=== PATIENT | female | born 1985 ===

== ENCOUNTER 2017-06-09 01:27 | Emergency (ER) | payer MEDICAID ==
[2017-06-09 01:52] VITALS: BMI 25.3
[2017-06-09 01:55] VITALS: BP 112/71; PULSE 103; RESP 16; TEMP 98; O2SAT 98
[2017-06-09] MEDS ORDERED: Sodium Chloride 0.9% 1,000 ML IV STA (01:55)
[2017-06-09 02:41] LABS: BASO # 0.1 K/uL (0.0-0.2); BASO % 0.7 % (0.0-2.0); EOS # 0.1 K/uL (0.0-0.7); EOS % 0.9 % (0.0-4.0); LYMPH # 1.1 K/uL (1.0-4.3); LYMPH % 14.3 % (20.0-40.0); MEAN CELL VOLUME 90.9 fl (81.0-99.0); MEAN CORPUSCULAR HEMOGLOBIN 29.9 pg (27.0-31.0); MEAN CORPUSCULAR HGB CONC 32.9 g/dL (33.0-37.0); MEAN PLATELET VOLUME 8.6 fl (7.2-11.7); MONO # 0.7 K/uL (0.0-0.8); MONO % 8.6 % (0.0-10.0); NEUT # 5.8 K/uL (1.8-7.0); NEUT % 75.5 % (50.0-75.0); RED CELL DISTRIBUTION WIDTH 12.4 % (11.5-14.5); WHITE BLOOD COUNT 7.7 K/uL (4.8-10.8)
[2017-06-09 02:43] LABS: RBC URINE 2 /hpf (0-3); URINE BILIRUBIN NEGATIVE (NEGATIVE); URINE BLOOD NEGATIVE (NEGATIVE); URINE COLOR YELLOW (YELLOW); URINE GLUCOSE (UA) NEG (Normal); URINE KETONE TRACE mg/dL (NEGATIVE); URINE LEUKOCYTE ESTERASE TRACE Leu/uL (Negative); URINE PROTEIN 30 mg/dL (NEGATIVE); URINE UROBILINOGEN 0.2-1.0 mg/dL (0.2-1.0); WBC URINE 2 /hpf (0-5)
[2017-06-09 02:47] LABS: ALB/GLOB RATIO 1.3 (1.0-2.1); ALKALINE PHOSPHATASE 70 U/L (38-126); ALT/SGPT 36 U/L (9-52); AST/SGOT 27 U/L (14-36); BILIRUBIN,TOTAL 0.4 mg/dl (0.2-1.3); BLOOD UREA NITROGEN 15 mg/dl (7-17); CALCIUM 9.2 mg/dL (8.4-10.2); CARBON DIOXIDE 23 mmol/L (22-30); CHLORIDE 102 mmol/L (98-107); GFR AFRICAN-AMERICAN > 60; GLUCOSE,RANDOM 105 mg/dL (65-105); LIPASE 100 U/L (23-300); POTASSIUM 4.1 MMOL/L (3.6-5.0); SODIUM 139 mmol/l (132-148); TOTAL PROTEIN 8.1 G/DL (6.3-8.2)
--- NOTE | 2017-06-09 02:56 | ED PDOC ---
HPI: Abdomen Time Seen by Provider: 06/09/17 01:55 Chief Complaint (Nursing): Abdominal Pain Chief Complaint (Provider): abominal pain History Per: Patient History/Exam Limitations: no limitations Onset/Duration Of Symptoms: Days (2) Outside of [place] travel?: No Location Of Pain/Discomfort: Epigastric Quality Of Discomfort: Sharp Associated Symptoms: Nausea, Diarrhea (>3x ), Loss Of Appetite. denies: Fever, Chills, Vomiting, Back Pain, Chest Pain, Constipation, Urinary Symptoms Past Medical History Reviewed: Historical Data, Nursing Documentation, Vital Signs Vital Signs: Last Vital Signs Temp 98.0 F 06/09/17 01:35 Pulse 103 H 06/09/17 01:35 Resp 16 06/09/17 01:35 BP 112/71 06/09/17 01:35 Pulse Ox 98 06/09/17 02:57 - Medical History PMH: Denies: HIV, Chronic Kidney Disease - Family History Family History: States: Unknown Family Hx - Home Medications Home Medications: Ambulatory Orders Medication Instructions Recorded Meclizine [Meclizine*] 25 mg PO Q6 #30 tab 12/23/15 Naproxen [Naprosyn] 500 mg PO Q12H #20 tab 09/02/16 Ondansetron [Zofran] 4 mg PO Q8H #10 tab 09/02/16 traMADol [Ultram] 50 mg PO Q8 #10 tab 09/02/16 Famotidine [Pepcid] 20 mg PO BID #16 tab 06/09/17 - Allergies Allergies/Adverse Reactions: Allergies Allergy/AdvReac Type Severity Reaction Status Date / Time No Known Allergies Allergy Verified 06/09/17 01:51 Review of Systems ROS Statement: Except As Marked, All Systems Reviewed And Found Negative Constitutional: Negative for: Fever Gastrointestinal: Positive for: Nausea. Negative for: Vomiting, Abdominal Pain Physical Exam - Reviewed Nursing Documentation Reviewed: Yes Vital Signs Reviewed: Yes - Physical Exam Appears: Positive for: Well, Non-toxic, No Acute Distress Skin: Positive for: Normal Color, Warm, DRY Cardiovascular/Chest: Positive for: Regular Rate, Rhythm Respiratory: Positive for: CNT, Normal Breath Sounds Gastrointestinal/Abdominal: Positive for: Normal Exam, Bowel Sounds, Soft, Tenderness (epigastric). Negative for: Mass, Distended, Guarding Back: Positive for: Normal Inspection. Negative for: L CVA Tenderness, R CVA Tenderness Neurologic/Psych: Positive for: Alert, Oriented - Laboratory Results Result Diagrams: 06/09/17 02:32 06/09/17 02:32 - ECG O2 Sat by Pulse Oximetry: 98 - Progress ED Course And Treament: Orders Category Date Time Status COMP METABOLIC PANEL Stat Chem 06/09/17 02:32 Completed LIPASE Stat Chem 06/09/17 02:32 Completed CBC (WITH DIFFERENTIAL) Stat TOSIN 06/09/17 02:32 Completed Famotidine [Pepcid] Med 06/09/17 02:11 Discontinued 20 mg .ROUTE .STK-MED ONE Famotidine [Pepcid] Med 06/09/17 01:55 Discontinued 20 mg IVP STAT STA Ondansetron [Zofran Inj] Med 06/09/17 02:11 Discontinued 4 mg .ROUTE .STK-MED ONE Ondansetron [Zofran Inj] Med 06/09/17 01:55 Discontinued 4 mg IVP STAT STA Sodium Chloride 0.9% 1,000 ml Med 06/09/17 01:55 Discontinued IV 1,000 mls/hr URINALYSIS Stat URINALYSIS 06/09/17 02:32 Completed Medical Decision Making Medical Decision Making: PT improved in symptom severity. labs are WNL. pt most likely with gastroenteritis, however advised to f.u with pmd for furthereval . d.c on pepcid. 06/09/17 06/09/17 06/09/17 02:32 02:32 02:32 WBC 7.7 RBC 4.96 Hgb 14.8 D Hct 45.0 MCV 90.9 MCH 29.9 MCHC 32.9 L RDW 12.4 Plt Count 253 MPV 8.6 Neut % (Auto) 75.5 H Lymph % (Auto) 14.3 L [place] % (Auto) 8.6 Eos % (Auto) 0.9 Baso % (Auto) 0.7 Neut # 5.8 Lymph # 1.1 [place] # 0.7 Eos # 0.1 Baso # 0.1 Sodium 139 Potassium 4.1 Chloride 102 Carbon Dioxide 23 Anion Gap 18 BUN 15 Creatinine 0.6 L Est GFR ( Amer) > 60 Est GFR (Non-Af Amer) > 60 Random Glucose 105 Calcium 9.2 Total Bilirubin 0.4 AST 27 ALT 36 Alkaline Phosphatase 70 Total Protein 8.1 Albumin 4.5 Globulin 3.6 Albumin/Globulin Ratio 1.3 Lipase 100 Urine Color Yellow Urine Clarity Slighty-cloudy Urine pH 6.0 Ur Specific [place] 1.030 Urine Protein 30 Urine Glucose (UA) Neg Urine Ketones Trace Urine Blood Negative Urine Nitrate Negative Urine Bilirubin Negative Urine Urobilinogen 0.2-1.0 Ur Leukocyte Esterase Trace Urine RBC (Auto) 2 Urine Microscopic WBC 2 Ur Squamous Epith Cells 6 H Disposition - Clinical Impression Clinical Impression: Gastroenteritis, Abdominal tenderness - Patient ED Disposition Is Patient to be Admitted: No Counseled Patient/Family Regarding: Need For Followup, Rx Given - Disposition Referrals: Homar Thomas MD [Staff Provider] - Disposition: Routine/Home Disposition Time: 03:52 Condition: STABLE Prescriptions: Famotidine [Pepcid] 20 mg PO BID #16 tab Forms: [employer] (Zimbabwean)
== END 2017-06-09 05:00 | disposition home or self-care (01) ==
LOC: H.ER 01:27
DX: K52.9 Noninfective gastroenteritis and colitis, unspecified (principal)
CPT/HCPCS: 80053; 81003; 81025; 83690; 85025; 96361; 96374; 96375; 99283; J2405; J7040

== ENCOUNTER 2017-07-25 06:13 | Emergency (ER) | payer MEDICAID ==
[2017-07-25 06:14] VITALS: BMI 25.3
[2017-07-25 06:52] VITALS: BP 103/77; PULSE 120; RESP 16; TEMP 97.5; O2SAT 98
--- NOTE | 2017-07-25 07:54 | ED PDOC ---
HPI: General Adult Time Seen by Provider: 07/25/17 06:26 Chief Complaint (Nursing): Cough, Cold, Congestion Chief Complaint (Provider): Cough, Cold, Congestion History Per: Patient History/Exam Limitations: no limitations Onset/Duration Of Symptoms: Days (x3 days) Current Symptoms Are (Timing): Still Present Additional Complaint(s): 31 y/o female presents to the ED for fever, cough and cold x 3 days. 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 Patient started getting dry cough and seeing and body aches on Wednesday and on Wednesday she started getting chest pain, fever (102), cough, headache and lower back pain. Patient states that she took Tylenol (last dose at 7pm on Wednesday07/25/16) and promethazine with no relief. Patient also used biofreeze for back pain without relief. Denies vomiting, nausea or any further medical complaints. Past Medical History Reviewed: Historical Data, Nursing Documentation, Vital Signs Vital Signs: Last Vital Signs Temp 97.5 F L 07/25/17 06:50 Pulse 120 H 07/25/17 06:50 Resp 16 07/25/17 06:50 BP 103/77 07/25/17 06:50 Pulse Ox 98 07/25/17 08:14 - Medical History PMH: Denies: HIV, Chronic Kidney Disease Other PMH: Bilateral Ovarian Cyst - Surgical History Surgical History: No Surg Hx - Family History Family History: States: Unknown Family Hx - Social History Current smoker - smoking cessation education provided: No Alcohol: None Drugs: Denies - Home Medications Home Medications: Ambulatory Orders Medication Instructions Recorded Meclizine [Meclizine*] 25 mg PO Q6 #30 tab 12/23/15 Naproxen [Naprosyn] 500 mg PO Q12H #20 tab 09/02/16 Ondansetron [Zofran] 4 mg PO Q8H #10 tab 09/02/16 traMADol [Ultram] 50 mg PO Q8 #10 tab 09/02/16 Famotidine [Pepcid] 20 mg PO BID #16 tab 06/09/17 Ondansetron [Zofran] 4 mg PO Q8H #12 tab 06/09/17 Benzonatate [Tessalon Perle] 100 mg PO TID #30 capsule 07/25/17 Naproxen [Naprosyn] 500 mg PO BID PRN #20 tablet 07/25/17 - Allergies Allergies/Adverse Reactions: Allergies Allergy/AdvReac Type Severity Reaction Status Date / Time No Known Allergies Allergy Verified 06/09/17 01:51 Review of Systems ROS Statement: Except As Marked, All Systems Reviewed And Found Negative (As per HPI, otherwise negative) Constitutional: Positive for: Fever, Weakness (Body aches), Other (cold) Cardiovascular: Positive for: Chest Pain Respiratory: Positive for: Cough Gastrointestinal: Negative for: Nausea, Vomiting Musculoskeletal: Positive for: Back Pain (Lower back pain) Neurological: Positive for: Headache Physical Exam - Reviewed Nursing Documentation Reviewed: Yes Vital Signs Reviewed: Yes - Physical Exam Appears: Positive for: Well, Non-toxic, No Acute Distress Head Exam: Positive for: ATRAUMATIC, NORMAL INSPECTION, NORMOCEPHALIC Skin: Positive for: Normal Color, Warm, Dry Eye Exam: Positive for: Normal appearance, EOMI, PERRL ENT: Positive for: Pharyngeal Erythema. Negative for: Tonsillar Exudate Neck: Positive for: Normal, Painless ROM, Supple Cardiovascular/Chest: Positive for: Regular Rate, Rhythm. Negative for: Murmur Respiratory: Positive for: Normal Breath Sounds. Negative for: Accessory Muscle Use, Respiratory Distress Gastrointestinal/Abdominal: Positive for: Normal Exam, Bowel Sounds, Soft. Negative for: Tenderness Back: Positive for: Normal Inspection Extremity: Positive for: Normal ROM. Negative for: Deformity Neurologic/Psych: Positive for: Alert, Oriented (x3) - ECG O2 Sat by Pulse Oximetry: 98 (RA) Pulse Ox Interpretation: Normal Medical Decision Making Medical Decision Making: Time: 07:11 Plan: Urine Dipstick Test Throat culture Rapid flu A/B Rapid strep group Urinalysis Scribe Attestation: Documented by Nallely Shaw acting as a scribe for Nohemi Ward MD. MD Fernando Attestation: All medical record entries made by the Kassie were at my direction and personally dictated by me. I have reviewed the chart and agree that the record accurately reflects my personal performance of the history, physical exam, medical decision making, and the department course for this patient. I have also personally directed, reviewed, and agree with the discharge instructions and disposition. Disposition - Clinical Impression Clinical Impression: URI, acute - Patient ED Disposition Is Patient to be Admitted: No Doctor Will See Patient In The: Office Counseled Patient/Family Regarding: Diagnosis, Need For Followup, Rx Given - Disposition Disposition: Routine/Home Disposition Time: 09:20 Condition: STABLE Additional Instructions: Flu and rapid strep negative Prescriptions: Benzonatate [Tessalon Perle] 100 mg PO TID #30 capsule Naproxen [Naprosyn] 500 mg PO BID PRN #20 tablet PRN Reason: Pain, Moderate (4-7) Instructions: Upper Respiratory Infection (ED) Forms: [facility] (Nigerien) - POA Present On Arrival: None
[2017-07-25 09:37] LABS: SQUAMOUS EPITHIAL 17 /hpf (0-5); URINE BACTERIA RARE (<OCC); URINE BILIRUBIN NEGATIVE (NEGATIVE); URINE BLOOD SMALL (NEGATIVE); URINE CLARITY CLOUDY (Clear); URINE COLOR YELLOW (YELLOW); URINE GLUCOSE (UA) NEG (Normal); URINE LEUKOCYTE ESTERASE TRACE Leu/uL (Negative); URINE NITRATE NEGATIVE (NEGATIVE); URINE PROTEIN NEGATIVE (NEGATIVE); URINE UROBILINOGEN 0.2-1.0 mg/dL (0.2-1.0)
== END 2017-07-25 09:57 | disposition home or self-care (01) ==
LOC: H.ER 06:13
DX: J06.9 Acute upper respiratory infection, unspecified (principal)

== ENCOUNTER 2017-10-06 09:30 | Emergency (ER) | payer MEDICAID ==
[2017-10-06 09:31] VITALS: BMI 25.3
[2017-10-06] MEDS ORDERED: Sodium Chloride 0.9% 1,000 ML IV STA (09:56)
--- NOTE | 2017-10-06 10:02 | ED PDOC ---
HPI: Abdomen Time Seen by Provider: 10/06/17 09:38 Chief Complaint (Nursing): Abdominal Pain History Per: Patient (32 yo lady who presents to the ER for evaluation of sudden and acute onset of severe left side abd/flank pain that caused her to fall to the ground. At the peak of the pain while she was en-route, she vomited. The pain is tolerable now but still present. It is sharp and non radiating.) History/Exam Limitations: no limitations Onset/Duration Of Symptoms: Sudden Onset Past Medical History Reviewed: Historical Data, Nursing Documentation, Vital Signs Vital Signs: Last Vital Signs Temp 97 F L 10/06/17 14:09 Pulse 79 10/06/17 14:09 Resp 19 10/06/17 14:09 BP 110/70 10/06/17 14:09 Pulse Ox 98 10/06/17 14:09 - Medical History PMH: Denies: HIV, Chronic Kidney Disease Other PMH: ovarian cyst - Surgical History Surgical History: No Surg Hx - Family History Family History: States: No Known Family Hx - Living Arrangements Living Arrangements: With Family - Social History Current smoker - smoking cessation education provided: No Alcohol: None - Home Medications Home Medications: Ambulatory Orders Medication Instructions Recorded Meclizine [Meclizine*] 25 mg PO Q6 #30 tab 12/23/15 Naproxen [Naprosyn] 500 mg PO Q12H #20 tab 09/02/16 Ondansetron [Zofran] 4 mg PO Q8H #10 tab 09/02/16 traMADol [Ultram] 50 mg PO Q8 #10 tab 09/02/16 Famotidine [Pepcid] 20 mg PO BID #16 tab 06/09/17 Ondansetron [Zofran] 4 mg PO Q8H #12 tab 06/09/17 Benzonatate [Tessalon Perle] 100 mg PO TID #30 capsule 07/25/17 Naproxen [Naprosyn] 500 mg PO BID PRN #20 tablet 07/25/17 Ciprofloxacin HCl [Cipro] 250 mg PO BID #14 tab 10/06/17 Naproxen [Naprosyn] 500 mg PO BID PRN #20 tablet 10/06/17 Ondansetron [Zofran] 4 mg PO Q8H #18 tab 03/28/18 Tamsulosin [Flomax] 0.4 mg PO DAILY #21 cap 10/06/17 - Allergies Allergies/Adverse Reactions: Allergies Allergy/AdvReac Type Severity Reaction Status Date / Time No Known Allergies Allergy Verified 06/09/17 01:51 Review of Systems ROS Statement: Except As Marked, All Systems Reviewed And Found Negative Constitutional: Negative for: Fever, Chills Cardiovascular: Negative for: Chest Pain Respiratory: Negative for: Cough, Shortness of Breath Gastrointestinal: Positive for: Nausea, Vomiting, Abdominal Pain (left) Genitourinary Female: Positive for: Vaginal Bleeding (menstrual). Negative for : Dysuria Physical Exam - Reviewed Nursing Documentation Reviewed: Yes Vital Signs Reviewed: Yes - Physical Exam Appears: Positive for: Well, Non-toxic, No Acute Distress, Uncomfortable Head Exam: Positive for: ATRAUMATIC, NORMAL INSPECTION, NORMOCEPHALIC Skin: Positive for: Normal Color, Warm, DRY Eye Exam: Positive for: Normal appearance, EOMI ENT: Positive for: Normal ENT Inspection Neck: Positive for: Normal Cardiovascular/Chest: Positive for: Regular Rate, Rhythm Respiratory: Positive for: CNT, Normal Breath Sounds Gastrointestinal/Abdominal: Positive for: Normal Exam, Soft. Negative for: Tenderness, Distended, Guarding Back: Positive for: Normal Inspection. Negative for: L CVA Tenderness, R CVA Tenderness Extremity: Positive for: Normal ROM Neurologic/Psych: Positive for: Alert, Oriented - Laboratory Results Result Diagrams: 10/06/17 10:40 10/06/17 10:40 - ECG O2 Sat by Pulse Oximetry: 100 Medical Decision Making Medical Decision Making: flank pain: stone vs. UTI LLQ pain: ovarian cyst vs. intestinal process. \ 2.00p - patient improved. pain controlled. CT shows 6mm stone with mild hydroneprhosis. Case d/w Jovi Zimmerman. Will see in the morning Disposition - Clinical Impression Clinical Impression: Ureteral stone with hydronephrosis - Patient ED Disposition Is Patient to be Admitted: No Doctor Will See Patient In The: Office Counseled Patient/Family Regarding: Diagnosis, Need For Followup, Rx Given - Disposition Referrals: Jamel Smallwood MD [Family Provider] - 10/07/17 9:00 am Disposition: Routine/Home Disposition Time: 14:16 Condition: IMPROVED Prescriptions: Ciprofloxacin HCl [Cipro] 250 mg PO BID #14 tab Naproxen [Naprosyn] 500 mg PO BID PRN #20 tablet PRN Reason: Pain, Moderate (4-7) Ondansetron [Zofran] 4 mg PO Q8H #18 tab Tamsulosin [Flomax] 0.4 mg PO DAILY #21 cap Instructions: Kidney Stones in Adults Forms: [facility] (Lithuanian), [facility] ED School/Work Excuse - POA Present On Arrival: None
[2017-10-06 10:56] LABS: BASO # 0.1 K/uL (0.0-0.2); BASO % 0.8 % (0.0-2.0); EOS % 0.4 % (0.0-4.0); HEMOGLOBIN 14.2 g/dL (12.0-16.0); LYMPH # 1.9 K/uL (1.0-4.3); LYMPH % 17.1 % (20.0-40.0); MEAN CELL VOLUME 90.6 fl (81.0-99.0); MEAN CORPUSCULAR HEMOGLOBIN 30.3 pg (27.0-31.0); MEAN CORPUSCULAR HGB CONC 33.5 g/dL (33.0-37.0); MEAN PLATELET VOLUME 8.7 fl (7.2-11.7); MONO # 0.7 K/uL (0.0-0.8); NEUT # 8.3 K/uL (1.8-7.0); NEUT % 75.7 % (50.0-75.0); RBC 4.69 Mil/uL (3.80-5.20)
[2017-10-06 11:01] LABS: SQUAMOUS EPITHIAL 7 /hpf (0-5); URINE BILIRUBIN NEGATIVE (NEGATIVE); URINE BLOOD LARGE (NEGATIVE); URINE CLARITY CLOUDY (Clear); URINE COLOR YELLOW (YELLOW); URINE GLUCOSE (UA) NEG (Normal); URINE LEUKOCYTE ESTERASE NEG Leu/uL (Negative); URINE PROTEIN 100 mg/dL (NEGATIVE); URINE UROBILINOGEN 0.2-1.0 mg/dL (0.2-1.0)
[2017-10-06 11:16] LABS: ALB/GLOB RATIO 1.1 (1.0-2.1); ALBUMIN 4.4 g/dL (3.5-5.0); ALT/SGPT 40 U/L (9-52); AST/SGOT 27 U/L (14-36); BLOOD UREA NITROGEN 17 mg/dl (7-17); GFR AFRICAN-AMERICAN > 60; GFR NON-AFRICAN AMERICAN > 60
--- NOTE | 2017-10-06 12:06 | CT ---
PROCEDURE: CT Abdomen and Pelvis without intravenous contrast HISTORY: acute left flank pain COMPARISON: 09/02/2016 TECHNIQUE: Without contrast.. Contrast Dose: 0 Radiation dose: Total exam DLP = Total exam DLP = 400.75 mGy-cm. This CT exam was performed using one or more of the following dose reduction techniques: Automated exposure control, adjustment of the mA and/or kV according to patient size, and/or use of iterative reconstruction technique. FINDINGS: LOWER THORAX: Unremarkable. LIVER: Normal size and contour. Diffusely diminished attenuation consistent with fatty infiltration. Mild focal fatty sparing about the gallbladder fossa. No mass. No biliary ductal dilatation. GALLBLADDER AND BILE DUCTS: Unremarkable. PANCREAS: Unremarkable. No gross lesion or ductal dilatation. SPLEEN: Unremarkable. ADRENALS: Unremarkable. No mass. KIDNEYS AND URETERS: Minimal left hydronephrosis and proximal hydroureter. There is a proximal left ureteral calculus measuring 6 mm in greatest dimension. The ureter is of normal caliber distal to this stone. VASCULATURE: Unremarkable. No aortic aneurysm. BOWEL: Unremarkable. No obstruction. No gross mural thickening. APPENDIX: Unremarkable. Normal appendix. PERITONEUM: Trace fluid in cul-de-sac. LYMPH NODES: Unremarkable. No enlarged lymph nodes. BLADDER: Nondistended REPRODUCTIVE: Normal anteverted uterus BONES: No acute fracture. OTHER FINDINGS: None. IMPRESSION: Obstructing 6 mm calculus in the proximal left ureter with minimal left hydroureteronephrosis. Mild fatty infiltration of the liver. No additional abnormality.
[2017-10-06 14:10] VITALS: RESP 19
[2017-10-06] MEDS ORDERED: Naproxen 500 MG TAB PO ONE ×2 (14:14→14:40)
[2017-10-07 11:05] VITALS: BP 128/76; PULSE 78; TEMP 97.6; O2SAT 98
== END 2017-10-06 15:10 | disposition home or self-care (01) ==
LOC: H.ER 09:30
DX: N13.2 Hydronephrosis with renal and ureteral calculous obstruction (principal); K76.0 Fatty (change of) liver, not elsewhere classified; N83.209 Unspecified ovarian cyst, unspecified side
CPT/HCPCS: 74176; 80053; 81003; 81025; 85025; 96374; 96375; 99284; J1885; J2765; J7040

== ENCOUNTER 2017-10-08 00:04 | Emergency (ER) | payer MEDICAID ==
[2017-10-08 00:04] VITALS: BMI 25.3
[2017-10-08 00:13] VITALS: BP 111/74; PULSE 78; RESP 16; TEMP 98.5; O2SAT 100
[2017-10-08] MEDS ORDERED: Sodium Chloride 0.9% 1,000 ML IV STA (00:51)
[2017-10-08 01:17] LABS: BASO # 0.1 K/uL (0.0-0.2); BASO % 0.6 % (0.0-2.0); EOS % 0.1 % (0.0-4.0); LYMPH # 1.3 K/uL (1.0-4.3); LYMPH % 10.4 % (20.0-40.0); MEAN CELL VOLUME 90.4 fl (81.0-99.0); MEAN CORPUSCULAR HEMOGLOBIN 30.5 pg (27.0-31.0); MEAN CORPUSCULAR HGB CONC 33.7 g/dL (33.0-37.0); MEAN PLATELET VOLUME 8.4 fl (7.2-11.7); MONO # 0.9 K/uL (0.0-0.8); MONO % 7.2 % (0.0-10.0); NEUT # 10.1 K/uL (1.8-7.0); NEUT % 81.7 % (50.0-75.0); NRBC % 0.1 % (0.0-0.0); RBC 4.6 Mil/uL (3.80-5.20); RED CELL DISTRIBUTION WIDTH 12.9 % (11.5-14.5); WHITE BLOOD COUNT 12.4 K/uL (4.8-10.8)
[2017-10-08 01:25] LABS: BLOOD UREA NITROGEN 15 mg/dl (7-17); CALCIUM 9.7 mg/dL (8.4-10.2); GFR AFRICAN-AMERICAN > 60; GFR NON-AFRICAN AMERICAN > 60; LIPASE 92 U/L (23-300)
--- NOTE | 2017-10-08 01:52 | ED PDOC ---
HPI: General Adult Time Seen by Provider: 10/08/17 00:18 Chief Complaint (Nursing): Back Pain Chief Complaint (Provider): nausea and vomitng History Per: Patient History/Exam Limitations: no limitations Onset/Duration Of Symptoms: Days (10/07/17) Current Symptoms Are (Timing): Still Present Additional Complaint(s): 32 year old female presents to the ED complaining of nausea and vomiting onset 6pm today, 10/07/17. Reports of vomiting several times. Patient visited the ED the day before for left flank pain. Patient stats CT scan was performed and she was diagnosed with kidney stone on left side and discharged with Cipro, Naprosyn , and Zofran. Patient was doing well until she took Percocet and developed nausea. After taking Zofran, she began to vomit. Denies pain, diarrhea, dysuria. PMD: Jamel Smallwood Past Medical History Reviewed: Historical Data, Nursing Documentation, Vital Signs Vital Signs: Last Vital Signs Temp 98.5 F 10/08/17 00:08 Pulse 78 10/08/17 00:08 Resp 16 10/08/17 00:08 BP 111/74 10/08/17 00:08 Pulse Ox 100 10/08/17 02:15 - Medical History PMH: Denies: HIV, Chronic Kidney Disease - Surgical History Surgical History: No Surg Hx - Family History Family History: States: Unknown Family Hx - Home Medications Home Medications: Ambulatory Orders Medication Instructions Recorded Meclizine [Meclizine*] 25 mg PO Q6 #30 tab 12/23/15 Naproxen [Naprosyn] 500 mg PO Q12H #20 tab 09/02/16 Ondansetron [Zofran] 4 mg PO Q8H #10 tab 09/02/16 traMADol [Ultram] 50 mg PO Q8 #10 tab 09/02/16 Famotidine [Pepcid] 20 mg PO BID #16 tab 06/09/17 Ondansetron [Zofran] 4 mg PO Q8H #12 tab 06/09/17 Benzonatate [Tessalon Perle] 100 mg PO TID #30 capsule 07/25/17 Naproxen [Naprosyn] 500 mg PO BID PRN #20 tablet 07/25/17 Ciprofloxacin HCl [Cipro] 250 mg PO BID #14 tab 10/06/17 Naproxen [Naprosyn] 500 mg PO BID PRN #20 tablet 10/06/17 Ondansetron [Zofran] 4 mg PO Q8H #18 tab 10/06/17 Tamsulosin [Flomax] 0.4 mg PO DAILY #21 cap 10/06/17 Ketorolac Tromethamine [Toradol] 10 mg PO Q6 PRN #15 tab 10/08/17 - Allergies Allergies/Adverse Reactions: Allergies Allergy/AdvReac Type Severity Reaction Status Date / Time No Known Allergies Allergy Verified 10/08/17 00:08 Review of Systems ROS Statement: Except As Marked, All Systems Reviewed And Found Negative Constitutional: Negative for: Fever Gastrointestinal: Positive for: Nausea, Vomiting. Negative for: Diarrhea Genitourinary Female: Negative for: Dysuria Physical Exam - Reviewed Nursing Documentation Reviewed: Yes Vital Signs Reviewed: Yes - Physical Exam Appears: Positive for: Well, Non-toxic, No Acute Distress Head Exam: Positive for: ATRAUMATIC, NORMAL INSPECTION, NORMOCEPHALIC Skin: Positive for: Normal Color, Warm, Dry Eye Exam: Positive for: EOMI, Normal appearance, PERRL ENT: Positive for: Normal ENT Inspection Neck: Positive for: Normal, Painless ROM, Supple. Negative for: Decreased ROM Cardiovascular/Chest: Positive for: Regular Rate, Rhythm. Negative for: Murmur Respiratory: Positive for: Normal Breath Sounds. Negative for: Decreased Breath Sounds, Accessory Muscle Use, Respiratory Distress Gastrointestinal/Abdominal: Positive for: Normal Exam, Bowel Sounds, Soft. Negative for: Tenderness, Guarding, Rebound Back: Positive for: Normal Inspection. Negative for: L CVA Tenderness, R CVA Tenderness Extremity: Positive for: Normal ROM. Negative for: Tenderness, Pedal Edema, Deformity Neurologic/Psych: Positive for: Alert, Oriented (x3). Negative for: Motor/ Sensory Deficits - Laboratory Results Result Diagrams: 10/08/17 01:14 10/08/17 01:14 - ECG O2 Sat by Pulse Oximetry: 100 (RA) Pulse Ox Interpretation: Normal - Progress Re-evaluation Time: 03:16 Condition: Re-examined, Improved Medical Decision Making Medical Decision Making: Time:0050 Initial Impression: Nausea and Vomiting Differential Diagnosis includes but is not limited to: Side effects from Percocet, less likely from kidney stone. No renal colon pain or gastritis. Initial Plan: --BMP --Lipase --ED Urine dipstick (POC) --CBC w/ differential --Normal Saline 1,000 mls/hr --Reglan 10mg PO --Reevaluation Report Date : 10/06/2017 12:04:08 PROCEDURE: CT Abdomen and Pelvis without intravenous contrast FINDINGS: LOWER THORAX: Unremarkable. LIVER: Normal size and contour. Diffusely diminished attenuation consistent with fatty infiltration. Mild focal fatty sparing about the gallbladder fossa. No mass. No biliary ductal dilatation. GALLBLADDER AND BILE DUCTS: Unremarkable. PANCREAS: Unremarkable. No gross lesion or ductal dilatation. SPLEEN: Unremarkable. ADRENALS: Unremarkable. No mass. KIDNEYS AND URETERS: Minimal left hydronephrosis and proximal hydroureter. There is a proximal left ureteral calculus measuring 6 mm in greatest dimension. The ureter is of normal caliber distal to this stone. VASCULATURE: Unremarkable. No aortic aneurysm. BOWEL: Unremarkable. No obstruction. No gross mural thickening. APPENDIX: Unremarkable. Normal appendix. PERITONEUM: Trace fluid in cul-de-sac. LYMPH NODES: Unremarkable. No enlarged lymph nodes. BLADDER: Nondistended REPRODUCTIVE: Normal anteverted uterus BONES: No acute fracture. OTHER FINDINGS: None. IMPRESSION: Obstructing 6 mm calculus in the proximal left ureter with minimal left hydroureteronephrosis. Mild fatty infiltration of the liver. No additional abnormality. Scribe Attestation: Documented by Tia Morris, acting as a scribe for Karina Jenkins MD Provider Scribe Attestation: All medical record entries made by the Scribe were at my direction and personally dictated by me. I have reviewed the chart and agree that the record accurately reflects my personal performance of the history, physical exam, medical decision making, and the department course for this patient. I have also personally directed, reviewed, and agree with the discharge instructions and disposition. Disposition - Clinical Impression Clinical Impression: Renal colic on left side - Patient ED Disposition Is Patient to be Admitted: No Doctor Will See Patient In The: Office Counseled Patient/Family Regarding: Studies Performed, Diagnosis, Need For Followup - Disposition Referrals: Jamel Smallwood MD [Primary Care Provider] - Jasbir Johnson Jr., MD [Staff Provider] - Disposition: Routine/Home Disposition Time: 03:17 Condition: GOOD Additional Instructions: Take your medications as instructed. Stop taking naproxen and percocet. Continue other medications you were given. Follow up with your PCP in 2 -3 days. Return for worsening. Prescriptions: Ketorolac Tromethamine [Toradol] 10 mg PO Q6 PRN #15 tab PRN Reason: Pain, Severe (8-10) Instructions: Renal Colic
[2017-10-08] MEDS ORDERED: Ciprofloxacin 400mg/200ml D5W 400 MG/200 ML BAG IVPB ONE (10:21)
== END 2017-10-08 03:32 | disposition home or self-care (01) ==
LOC: H.ER 00:04
DX: N13.2 Hydronephrosis with renal and ureteral calculous obstruction (principal); K76.0 Fatty (change of) liver, not elsewhere classified
CPT/HCPCS: 80048; 83690; 85025; 96361; 96374; 99282; J1885; J7040

== ENCOUNTER 2017-10-08 07:36 | Inpatient (IN) | payer MEDICAID ==
[2017-10-08 07:36] VITALS: BMI 25.3
[2017-10-08] MEDS ORDERED: Sodium Chloride 0.9% 1,000 ML IV STA (08:23)
--- NOTE | 2017-10-08 09:16 | ED PDOC ---
HPI: Abdomen Time Seen by Provider: 10/08/17 08:08 Chief Complaint (Nursing): Abdominal Pain Chief Complaint (Provider): Abdominal Pain History Per: Patient History/Exam Limitations: no limitations Onset/Duration Of Symptoms: Persistent Current Symptoms Are (Timing): Still Present Additional Complaint(s): 32 year old female presents to the emergency department with a complaint of persistent abdominal pain ongoing for 2 days. Patient was seen by provider on for a left-sided 6mm kidney stone and discharged in stable condition with Naprosyn. She was then seen by her PMD yesterday and reported Naprosyn did not help her and prescribed Toradol and Percocet. Patient was recently evaluated and discharged in ED earlier this morning but returned shortly because she "did not feel well and couldn't eat/drink". PMD: [facility] Past Medical History Reviewed: Historical Data, Nursing Documentation, Vital Signs Vital Signs: Last Vital Signs Temp 98.7 F 10/08/17 11:00 Pulse 82 10/08/17 11:00 Resp 20 10/08/17 11:00 BP 150/79 10/08/17 11:00 Pulse Ox 99 10/08/17 11:00 - Medical History PMH: Kidney Stones Denies: HIV, Chronic Kidney Disease - Surgical History Surgical History: No Surg Hx - Family History Family History: States: Unknown Family Hx - Social History Current smoker - smoking cessation education provided: No Alcohol: None Drugs: Denies - Home Medications Home Medications: Ambulatory Orders Medication Instructions Recorded Ciprofloxacin HCl [Cipro] 250 mg PO BID 10/08/17 Ondansetron [Zofran] 4 mg PO Q8H 10/08/17 Tamsulosin [Flomax] 0.4 mg PO DAILY 10/08/17 - Allergies Allergies/Adverse Reactions: Allergies Allergy/AdvReac Type Severity Reaction Status Date / Time No Known Allergies Allergy Verified 10/08/17 07:47 Review of Systems ROS Statement: Except As Marked, All Systems Reviewed And Found Negative Physical Exam - Reviewed Nursing Documentation Reviewed: Yes Vital Signs Reviewed: Yes - Physical Exam Appears: Positive for: Non-toxic, Uncomfortable Head Exam: Positive for: ATRAUMATIC, NORMAL INSPECTION, NORMOCEPHALIC Skin: Positive for: Normal Color Eye Exam: Positive for: Normal appearance ENT: Positive for: Normal ENT Inspection Neck: Positive for: Normal Cardiovascular/Chest: Positive for: Regular Rate, Rhythm, Chest Non Tender Respiratory: Positive for: Normal Breath Sounds. Negative for: Decreased Breath Sounds, Respiratory Distress Gastrointestinal/Abdominal: Positive for: Normal Exam, Soft. Negative for: Tenderness Extremity: Positive for: Normal ROM (upper/lower) Neurologic/Psych: Positive for: Alert (x3), Oriented, Gait (steady). Negative for: Motor/Sensory Deficits - ECG O2 Sat by Pulse Oximetry: 98 (RA) Pulse Ox Interpretation: Normal Medical Decision Making Medical Decision Making: Initial Impression: Kidney stones Initial Plan: * NS 1,000ml IV per 1,000mls/hr * Reglan 10mg IV * Toradol 30mg IV Time: 825 --Discussed case with Jovi Zimmerman APN. --Patient will be admitted for intractable pain, nausea and kidney stones. Scribe Attestation: Documented by Vianney Hameed, acting as a scribe for Nohemi Ward MD. Provider Scribe Attestation: All medical record entries made by the Scribe were at my direction and personally dictated by me. I have reviewed the chart and agree that the record accurately reflects my personal performance of the history, physical exam, medical decision making, and the department course for this patient. I have also personally directed, reviewed, and agree with the discharge instructions and disposition. Disposition - Clinical Impression Clinical Impression: Renal colic on left side - Patient ED Disposition Is Patient to be Admitted: Yes Doctor Will See Patient In The: Hospital - Disposition Disposition: Transfer of Care Disposition Time: 10:35 Condition: FAIR - Pt Status Changed To: Hospital Disposition Of: Inpatient - Admit Certification Admit to Inpatient:: After my assessment, the patient will require hospitalization for at least two midnights. This is because of the severity of symptoms shown, intensity of services needed, and/or the medical risk in this patient being treated as an outpatient. - POA Present On Arrival: None
[2017-10-08] MEDS ORDERED: Morphine 4 MG/ML VIAL IVP PRN (09:42)
[2017-10-08] MEDS: Ciprofloxacin 400mg/200ml D5W 400 MG/200 ML BAG IVPB SCH ×2 (10:29→21:05)
[2017-10-08] MEDS: Sodium Chloride 0.9% 1,000 ML IV SCH ×2 (11:59→18:38)
--- NOTE | 2017-10-08 17:03 | CP.PCM.CON ---
History of Present Illness - History of Present Illness History of Present Illness: 32yy female with acute left renal colic secondary to an occlusive left ureteral calculus. First episode was in ER recentlywhere ct demonstrated 6mm proximal obstructing calc. Will plan to take pt to OR in am to manipulate stone. Past Patient History - Infectious Disease Hx of Infectious Diseases: None - Past Medical History & Family History Past Medical History?: Yes - Past Social History Alcohol: None Drugs: Denies - CARDIAC Hx Cardiac Disorders: No - PULMONARY Hx Respiratory Disorders: No - NEUROLOGICAL Hx Neurological Disorder: No - HEENT Hx HEENT Problems: Yes Other/Comment: glasses and contacts - RENAL Hx Chronic Kidney Disease: No Hx Kidney Stones: Yes - ENDOCRINE/METABOLIC Hx Endocrine Disorders: No - HEMATOLOGICAL/ONCOLOGICAL Hx Human Immunodeficiency Virus (HIV): No - INTEGUMENTARY Hx Dermatological Problems: No - MUSCULOSKELETAL/RHEUMATOLOGICAL Hx Musculoskeletal Disorders: No Hx Falls: No - GASTROINTESTINAL Hx Gastrointestinal Disorders: No - GENITOURINARY/GYNECOLOGICAL Hx Genitourinary Disorders: No Other/Comment: Hx Bilateral Ovarian cysts - PSYCHIATRIC Hx Psychophysiologic Disorder: No Hx Substance Use: No - SURGICAL HISTORY Hx Surgeries: No - ANESTHESIA Hx Anesthesia: No Hx Anesthesia Reactions: No Hx Malignant Hyperthermia: No Has any member of the family had a problem w/ anesthesia?: No Meds Allergies/Adverse Reactions: Allergies Allergy/AdvReac Type Severity Reaction Status Date / Time No Known Allergies Allergy Verified 10/08/17 07:47 - Medications Medications: Current Medications Famotidine (Pepcid) 20 mg IVP Q12 [place] Sodium Chloride (Sodium Chloride 0.9%) 1,000 mls @ 125 mls/hr IV .Q8H [facility] Stop: 10/09/17 09:44 Last Admin: 10/08/17 11:59 Dose: 125 mls/hr Ciprofloxacin (Cipro 400mg/200ml Dsw) 400 mg in 200 mls @ 200 mls/hr IVPB Q12 [place]KA PRN Reason: Protocol Last Admin: 10/08/17 10:29 Dose: 200 mls/hr Ketorolac Tromethamine (Toradol) 30 mg IVP Q6 PRN PRN Reason: Pain, moderate (4-7) Last Admin: 10/08/17 13:24 Dose: 30 mg Morphine Sulfate (Morphine) 2 mg IVP Q4 PRN PRN Reason: Pain, severe (8-10) Ondansetron HCl (Zofran Inj) 4 mg IVP Q6 PRN PRN Reason: Nausea/Vomiting Last Admin: 10/08/17 11:58 Dose: 4 mg Tamsulosin HCl (Flomax) 0.4 mg PO BID MALKA Results - Vital Signs Recent Vital Signs: Last Vital Signs Temp 98.8 F 10/08/17 16:31 Pulse 88 10/08/17 16:31 Resp 20 10/08/17 16:31 BP 108/64 10/08/17 16:31 Pulse Ox 98 10/08/17 16:31
[2017-10-09] MEDS: Sodium Chloride 0.9% 1,000 ML IV SCH (01:04)
--- NOTE | 2017-10-09 07:39 | CP.PCM.HP ---
History of Present Illness - History of Present Illness History of Present Illness: pt admitted for intractable left flank pain , n/v r/t left kidney stone approx 6mm atpresent comfortable after reglan/toradol. no f/c. bw noted. ekg noted. for or this am w/ dr law no med/surg hx reported Present on Admission - Present on Admission Any Indicators Present on Admission: No Past Patient History - Infectious Disease Hx of Infectious Diseases: None - Past Medical History & Family History Past Medical History?: Yes - Past Social History Alcohol: None Drugs: Denies - CARDIAC Hx Cardiac Disorders: No - PULMONARY Hx Respiratory Disorders: No - NEUROLOGICAL Hx Neurological Disorder: No - HEENT Hx HEENT Problems: Yes Other/Comment: glasses and contacts - RENAL Hx Chronic Kidney Disease: No Hx Kidney Stones: Yes - ENDOCRINE/METABOLIC Hx Endocrine Disorders: No - HEMATOLOGICAL/ONCOLOGICAL Hx Human Immunodeficiency Virus (HIV): No - INTEGUMENTARY Hx Dermatological Problems: No - MUSCULOSKELETAL/RHEUMATOLOGICAL Hx Musculoskeletal Disorders: No Hx Falls: No - GASTROINTESTINAL Hx Gastrointestinal Disorders: No - GENITOURINARY/GYNECOLOGICAL Hx Genitourinary Disorders: No Other/Comment: Hx Bilateral Ovarian cysts - PSYCHIATRIC Hx Psychophysiologic Disorder: No Hx Substance Use: No - SURGICAL HISTORY Hx Surgeries: No - ANESTHESIA Hx Anesthesia: No Hx Anesthesia Reactions: No Hx Malignant Hyperthermia: No Has any member of the family had a problem w/ anesthesia?: No Meds Allergies/Adverse Reactions: Allergies Allergy/AdvReac Type Severity Reaction Status Date / Time No Known Allergies Allergy Verified 10/08/17 07:47 Physical Exam - Constitutional Appears: Well, Non-toxic, No Acute Distress - Head Exam Head Exam: ATRAUMATIC, NORMAL INSPECTION, NORMOCEPHALIC - Eye Exam Eye Exam: EOMI, Normal appearance, PERRL Pupil Exam: NORMAL ACCOMODATION, PERRL - ENT Exam ENT Exam: Mucous Membranes Moist, Normal Exam - Neck Exam Neck exam: Positive for: Normal Inspection - Respiratory Exam Respiratory Exam: Clear to Auscultation Bilateral, NORMAL BREATHING PATTERN - Cardiovascular Exam Cardiovascular Exam: REGULAR RHYTHM, RRR, +S1, +S2 - GI/Abdominal Exam GI & Abdominal Exam: Normal Bowel Sounds, Soft. absent: Tenderness - Extremities Exam Extremities exam: Positive for: full ROM, normal capillary refill, normal inspection, pedal pulses present - Back Exam Back exam: FULL ROM, NORMAL INSPECTION - Neurological Exam Neurological exam: Alert, CN II-XII Intact, Normal Gait, Oriented x3, Reflexes Normal - Psychiatric Exam Psychiatric exam: Normal Affect, Normal Mood - Skin Skin Exam: Dry, Intact, Normal Color, Warm Results - Vital Signs Recent Vital Signs: Last Vital Signs Temp 97.7 F 10/08/17 23:37 Pulse 78 10/08/17 23:37 Resp 20 10/08/17 23:37 BP 98/65 L 10/08/17 23:37 Pulse Ox 97 10/08/17 23:37 Assessment & Plan (1) Kidney stone Assessment and Plan: or today w/ uro, medically cleared pain and nausea control cipro Status: Acute (2) Renal colic on left side Assessment and Plan: or today w/ uro, medically cleared pain and nausea control Status: Acute (3) DVT prophylaxis Assessment and Plan: scd nad ae hose ambulation Status: Acute Decision To Admit - Pt Status Changed To: Hospital Disposition Of: Inpatient - Admit Certification Admit to Inpatient:: After my assessment, the patient will require hospitalization for at least two midnights. This is because of the severity of symptoms shown, intensity of services needed, and/or the medical risk in this patient being treated as an outpatient. - . Bed Request Type: Med/Surg Admitting Physician: Felton Quinones
[2017-10-09 08:02] LABS: BASO % 0.3 % (0.0-2.0); EOS % 0.3 % (0.0-4.0); HEMOGLOBIN 12.5 g/dL (12.0-16.0); LYMPH # 1.4 K/uL (1.0-4.3); LYMPH % 11.6 % (20.0-40.0); MEAN CELL VOLUME 90.6 fl (81.0-99.0); MEAN CORPUSCULAR HEMOGLOBIN 30.6 pg (27.0-31.0); MEAN CORPUSCULAR HGB CONC 33.8 g/dL (33.0-37.0); MONO # 1.1 K/uL (0.0-0.8); NEUT # 9.7 K/uL (1.8-7.0); NEUT % 78.8 % (50.0-75.0); RBC 4.1 Mil/uL (3.80-5.20); RED CELL DISTRIBUTION WIDTH 12.9 % (11.5-14.5); WHITE BLOOD COUNT 12.3 K/uL (4.8-10.8)
[2017-10-09 08:20] LABS: ALB/GLOB RATIO 1.1 (1.0-2.1); ALBUMIN 3.7 g/dL (3.5-5.0); ALT/SGPT 29 U/L (9-52); AST/SGOT 30 U/L (14-36); BLOOD UREA NITROGEN 11 mg/dl (7-17); CALCIUM 8.6 mg/dL (8.4-10.2); GFR AFRICAN-AMERICAN > 60; GFR NON-AFRICAN AMERICAN > 60; PROTHROMBIN TIME 11.5 Seconds (9.8-13.1)
[2017-10-09 08:21] LABS: PARTIAL THROMBOPLASTIN TIME 30.1 Seconds (25.6-37.1)
[2017-10-09] MEDS: Ciprofloxacin 400mg/200ml D5W 400 MG/200 ML BAG IVPB SCH ×2 (08:25→20:59)
--- NOTE | 2017-10-09 11:08 | RAD ---
HISTORY: md order COMPARISON: No prior. FINDINGS: BOWEL: Prominent amount of retained colonic stool. No obstruction. No free air. BONES: Normal. OTHER FINDINGS: None. IMPRESSION: Prominent amount of retained colonic stool.
[2017-10-09] MEDS ORDERED: Lidocaine 2% Jelly (Uro-Jet) ONE (14:36)
[2017-10-09] MEDS ORDERED: Iohexol 240 200 ML ONE (14:36)
[2017-10-09] MEDS ORDERED: cefTRIAXone (Rocephin) 1 gm Inj ONE (14:36)
[2017-10-09] MEDS ORDERED: Propofol 10 mg/ml Inj (20 ML) ONE (14:45)
[2017-10-09] MEDS ORDERED: Etomidate 20 mg/10ml Inj IV ONE (14:46)
[2017-10-09] MEDS ORDERED: Dexamethasone 4 mg/1 ml ONE (14:47)
[2017-10-09] MEDS ORDERED: Midazolam 2 MG/2 ML VIAL ONE (15:47)
--- NOTE | 2017-10-09 15:47 | CARD ---
APPROVED REPORT EKG Measurement Heart [id number] <Conclusion> Normal sinus rhythm with sinus arrhythmia Low voltage QRS Borderline ECG
[2017-10-09] MEDS ORDERED: Lactated Ringer's 1,000 ML IV ONE (16:00)
[2017-10-09] MEDS ORDERED: Lactated Ringer's 1,000 ML IV SCH (16:30)
--- NOTE | 2017-10-10 01:00 | OP ---
PROCEDURE DATE: 10/09/2017 PREOPERATIVE DIAGNOSES: Left renal colic with left proximal ureteral calculous. POSTOPERATIVE DIAGNOSES: Left renal colic with left proximal ureteral calculous. PROCEDURE PERFORMED ON THE PATIENT: Cystoscopy with left ureteroscopy, and double J-stent placement. DESCRIPTION OF PROCEDURE: Under general anesthesia, the patient was placed in the operating room table in dorsal lithotomy position, the area of the groin was draped and prepped in a sterile manner. Using a short ureteroscope, I entered into the bladder atraumatically, there was no evidence of stone in the bladder. I at this time engaged in the left ureteral orifice with a 0.035 Glidewire. I advanced the ureteroscope under direct vision to the level of the renal pelvis, I did not see a stone here. I retracted the entire view from the renal pelvis back to the ureteral orifice, again did not see a stone. Quality of the x-ray at this point was suboptimal. So I am assuming that stone is remaining in the left renal unit as the patient did not preoperatively state that she passed the stone. With that under fluoroscopy, I placed a 6-[place] multi-link double-J stent. Once this was coiled proximally and distally, then I removed all the instrumentation. The patient was taken from the operating room in good condition. Mike Jenkins MD
[2017-10-10 07:44] LABS: BASO % 0.1 % (0.0-2.0); EOS % 0.1 % (0.0-4.0); LYMPH # 1.1 K/uL (1.0-4.3); LYMPH % 9.4 % (20.0-40.0); MEAN CELL VOLUME 90.9 fl (81.0-99.0); MEAN CORPUSCULAR HEMOGLOBIN 30.7 pg (27.0-31.0); MEAN CORPUSCULAR HGB CONC 33.7 g/dL (33.0-37.0); MONO # 0.7 K/uL (0.0-0.8); MONO % 5.7 % (0.0-10.0); NEUT # 10.3 K/uL (1.8-7.0); NEUT % 84.7 % (50.0-75.0); PLATELET COUNT 274 K/uL (130-400); RBC 4.24 Mil/uL (3.80-5.20); RED CELL DISTRIBUTION WIDTH 12.5 % (11.5-14.5); WHITE BLOOD COUNT 12.2 K/uL (4.8-10.8)
[2017-10-10 07:56] LABS: ALB/GLOB RATIO 1.1 (1.0-2.1); ALBUMIN 3.9 g/dL (3.5-5.0); ALT/SGPT 41 U/L (9-52); AST/SGOT 30 U/L (14-36); BLOOD UREA NITROGEN 16 mg/dl (7-17); CALCIUM 9.2 mg/dL (8.4-10.2); GFR AFRICAN-AMERICAN > 60; GFR NON-AFRICAN AMERICAN > 60
[2017-10-10] MEDS: Ciprofloxacin 400mg/200ml D5W 400 MG/200 ML BAG IVPB SCH (08:18)
[2017-10-10 08:20] VITALS: BP 103/67; PULSE 69; RESP 18; TEMP 98; O2SAT 97
--- NOTE | 2017-10-10 08:58 | RAD ---
HISTORY: locate left rrenal calc COMPARISON: No prior. FINDINGS: There is a new left double-J ureteral stent. The previously seen mid ureteral calculus is not visualized in the ureter, but may have migrated into the left renal pelvis just lateral to the proximal pigtail. No other significant interval change is identified. IMPRESSION: Interval placement of left double-J ureteral stent. Previously seen mid ureteral calculus may have migrated into the left renal pelvis just lateral to the proximal pigtail.
--- NOTE | 2017-10-10 10:17 | CP.PCM.DIS ---
Provider - Provider Date of Admission: 10/08/17 08:26 Attending physician: Felton Quinones MD Time Spent in preparation of Discharge (in minutes): 15 Diagnosis - Discharge Diagnosis (1) Kidney stone Status: Acute (2) Renal colic on left side Status: Acute (3) DVT prophylaxis Status: Acute Hospital Course - Lab Results Lab Results: Most Recent Lab Values WBC 12.2 K/uL (4.8-10.8) H 10/10/17 06:00 RBC 4.24 Mil/uL (3.80-5.20) 10/10/17 06:00 Hgb 13.0 g/dL (12.0-16.0) 10/10/17 06:00 Hct 38.5 % (34.0-47.0) 10/10/17 06:00 MCV 90.9 fl (81.0-99.0) 10/10/17 06:00 MCH 30.7 pg (27.0-31.0) 10/10/17 06:00 MCHC 33.7 g/dL (33.0-37.0) 10/10/17 06:00 RDW 12.5 % (11.5-14.5) 10/10/17 06:00 Plt Count 274 K/uL (130-400) 10/10/17 06:00 MPV 9.0 fl (7.2-11.7) 10/10/17 06:00 Neut % (Auto) 84.7 % (50.0-75.0) H 10/10/17 06:00 Lymph % (Auto) 9.4 % (20.0-40.0) L 10/10/17 06:00 [place] % (Auto) 5.7 % (0.0-10.0) 10/10/17 06:00 Eos % (Auto) 0.1 % (0.0-4.0) 10/10/17 06:00 Baso % (Auto) 0.1 % (0.0-2.0) 10/10/17 06:00 Neut # (Auto) 10.3 K/uL (1.8-7.0) H 10/10/17 06:00 Lymph # (Auto) 1.1 K/uL (1.0-4.3) 10/10/17 06:00 [place] # (Auto) 0.7 K/uL (0.0-0.8) 10/10/17 06:00 Eos # (Auto) 0.0 K/uL (0.0-0.7) 10/10/17 06:00 Baso # (Auto) 0.0 K/uL (0.0-0.2) 10/10/17 06:00 PT 11.5 Seconds (9.8-13.1) 10/09/17 05:30 INR 1.0 (0.9-1.2) 10/09/17 05:30 APTT 30.1 Seconds (25.6-37.1) 10/09/17 05:30 Sodium 141 mmol/l (132-148) 10/10/17 06:00 Potassium 4.3 MMOL/L (3.6-5.0) 10/10/17 06:00 Chloride 104 mmol/L (98-107) 10/10/17 06:00 Carbon Dioxide 20 mmol/L (22-30) L 10/10/17 06:00 Anion Gap 21 (10-20) H 10/10/17 06:00 BUN 16 mg/dl (7-17) 10/10/17 06:00 Creatinine 0.8 mg/dl (0.7-1.2) 10/10/17 06:00 Est GFR ( Amer) > 60 10/10/17 06:00 Est GFR (Non-Af Amer) > 60 10/10/17 06:00 Random Glucose 109 mg/dL (65-105) H 10/10/17 06:00 Calcium 9.2 mg/dL (8.4-10.2) 10/10/17 06:00 Total Bilirubin 0.5 mg/dl (0.2-1.3) 10/10/17 06:00 AST 30 U/L (14-36) 10/10/17 06:00 ALT 41 U/L (9-52) 10/10/17 06:00 Alkaline Phosphatase 72 U/L (38-126) 10/10/17 06:00 Total Protein 7.5 G/DL (6.3-8.2) 10/10/17 06:00 Albumin 3.9 g/dL (3.5-5.0) 10/10/17 06:00 Globulin 3.6 gm/dL (2.2-3.9) 10/10/17 06:00 Albumin/Globulin Ratio 1.1 (1.0-2.1) 10/10/17 06:00 - Hospital Course Hospital Course: nausea and pain control ivf uro consult w/ stenting Discharge Exam - Head Exam Head Exam: ATRAUMATIC, NORMAL INSPECTION, NORMOCEPHALIC Discharge Plan - Discharge Medications Prescriptions: Famotidine [Pepcid] 20 mg PO BID #60 tab Hydrocodone/Acetaminophen [[place] 325 mg-5 mg] 1 tab PO Q4 PRN #10 tab PRN Reason: Pain, Severe (8-10) Ketorolac Tromethamine [Toradol] 10 mg PO Q6 PRN #20 tab PRN Reason: Pain, Moderate (4-7) Metoclopramide HCl [Reglan] 10 mg PO Q6 PRN #20 tablet PRN Reason: Nausea/Vomiting Ondansetron [Zofran Tab] 4 mg PO Q8H #20 tab Tamsulosin [Flomax] 0.4 mg PO BID #14 cap - Follow Up Plan Condition: FAIR Disposition: HOME/ ROUTINE Additional Instructions: final dx-kidney stone 6mm left side. f/u uro. and rmg, rted prn, meds per med rec pt c/o left tongue white spots- ?? r/t anbx will dco n probx and yogurt c/o constipation. will give rx for colace and advise fiber rich foods. other farr w/o n/v/d, no f/c, minimal pain.
[2017-10-10 12:53] LABS: BANDS 1 % (0-2); EOSINOPHIL 1 % (0-7); LYMPHOCYTE 6 % (20-50); MONOCYTE 5 % (0-10); NEUTROPHIL 87 % (42-75); PLATELET ESTIMATE NORMAL (NORMAL); TOTAL CELLS COUNTED 100
--- NOTE | 2017-10-11 11:56 | RAD ---
CLINICAL HISTORY: Ureteral stone with hydronephrosis EXAMINATION PERFORMED: Retrograde and stent placement COMPARISON EXAMINATIONS: NONE TECHNIQUE: Standard protocol for this examination/study. FINDINGS: Multiple images from the unilateral, left retrograde and stent placement submitted. IMPRESSION: Less than 1 hr fluoroscopic time utilized during performance of the procedure.
== END 2017-10-10 11:05 | disposition home or self-care (01) | DRG 324 ==
LOC: H.ER 07:36 → H.ERHOLD 08:26 → H.MEDSURG1 10:53
PROVIDERS: ADMIT Family Medicine; ATTEND Family Medicine
PROC: 0T778DZ Dilation of Left Ureter with Intraluminal Device, Via Natural or Artificial Opening Endoscopic (ICD-10-PCS; principal; 2017-10-08)
DX: N20.2 Calculus of kidney with calculus of ureter (principal); Z87.442 Personal history of urinary calculi; N83.202 Unspecified ovarian cyst, left side; N83.201 Unspecified ovarian cyst, right side

== ENCOUNTER 2018-06-10 16:55 | Emergency (ER) | payer MEDICAID ==
[2018-06-10 16:55] VITALS: BMI 25.3
[2018-06-10 17:08] VITALS: BP 118/88; PULSE 81; RESP 18; TEMP 98; O2SAT 100
[2018-06-10] MEDS ORDERED: Absorbable Gelatin Sponge Size 12-7 TP ONE (17:48)
--- NOTE | 2018-06-10 17:59 | ED PDOC ---
Upper Extremity Pain/Injury Time Seen by Provider: 06/10/18 17:29 Chief Complaint (Nursing): Abnormal Skin Integrity Chief Complaint (Provider): Abnormal Skin Integrity History Per: Patient History/Exam Limitations: no limitations Onset/Duration Of Symptoms: Sudden Onset Current Symptoms Are (Timing): Still Present Additional Complaint(s): 32 year old female arrives to ED for an evaluation of a left hand injury sustained after using a vegetable jesús at 1130 earlier today. Patient expresses concern as wound continues to bleed since onset. She denies any numbness, tingling sensation, or other bodily injuries. Patient states that she applied Neosporin ointment but did not take any medication for relief prior to arrival. Last tetanus shot is unknown. PCP: Dr. Ramon Smallwood Past Medical History Reviewed: Historical Data, Nursing Documentation, Vital Signs Vital Signs: Last Vital Signs Temp 98 F 06/10/18 17:06 Pulse 81 06/10/18 17:06 Resp 18 06/10/18 17:06 BP 118/88 06/10/18 17:06 Pulse Ox 100 06/10/18 17:06 - Medical History PMH: Kidney Stones Denies: HIV, Chronic Kidney Disease - Family History Family History: States: Unknown Family Hx - Home Medications Home Medications: Ambulatory Orders Medication Instructions Recorded Ciprofloxacin HCl [Cipro] 250 mg PO BID 10/08/17 Docusate Sodium [Colace] 100 mg PO BID #20 capsule 10/10/17 Famotidine [Pepcid] 20 mg PO BID #60 tab 10/10/17 Hydrocodone/Acetaminophen [[place] 1 tab PO Q4 PRN #10 tab 10/10/17 325 mg-5 mg] Ketorolac Tromethamine [Toradol] 10 mg PO Q6 PRN #20 tab 10/10/17 Lactobacillus Acidophilus [Bacid 1 cap PO BID #30 cap 10/10/17 Acidophilus] Metoclopramide HCl [Reglan] 10 mg PO Q6 PRN #20 tablet 10/10/17 Ondansetron [Zofran Tab] 4 mg PO Q8H #20 tab 10/10/17 Tamsulosin [Flomax] 0.4 mg PO BID #14 cap 10/10/17 Cephalexin [Keflex] 500 mg PO TID 7 Days #21 capsule 06/10/18 - Allergies Allergies/Adverse Reactions: Allergies Allergy/AdvReac Type Severity Reaction Status Date / Time No Known Allergies Allergy Verified 06/10/18 17:06 Review of Systems ROS Statement: Except As Marked, All Systems Reviewed And Found Negative Constitutional: Negative for: Fever, Chills Cardiovascular: Negative for: Chest Pain Respiratory: Negative for: Shortness of Breath Gastrointestinal: Negative for: Nausea, Vomiting, Abdominal Pain Musculoskeletal: Positive for: Hand Pain (left-sided, 5th digit injury) Skin: Negative for: Bruising Neurological: Negative for: Weakness, Numbness (or tingling sensation) Physical Exam - Reviewed Nursing Documentation Reviewed: Yes Vital Signs Reviewed: Yes - Physical Exam Appears: Positive for: Well, Non-toxic, No Acute Distress Head Exam: Positive for: ATRAUMATIC, NORMAL INSPECTION, NORMOCEPHALIC Skin: Positive for: Normal Color Cardiovascular/Chest: Positive for: Regular Rate, Rhythm Respiratory: Positive for: Normal Breath Sounds Pulses-Radial (L): 2+ Pulses-Radial (R): 2+ Extremity: Positive for: Normal ROM (left digits), Tenderness (left hand, 5th digit), Capillary Refill (<2seconds), Other (0.5cm long avulsion to tip of left hand, 5th digit. Small amount of active bleeding.). Negative for: Deformity, Swelling Neurologic/Psych: Positive for: Alert, Oriented, Gait (steady without assistance). Negative for: Motor/Sensory Deficits - ECG O2 Sat by Pulse Oximetry: 100 (RA) Pulse Ox Interpretation: Normal Medical Decision Making Medical Decision Making: Time: 1714 Initial Plan: * Gelfoam * Adacel 0.5ml IM * Keflex 500mg PO Time: 1739 --Patient refusing tetanus vaccine. Explained the risk of refusing the tetanus booster, including tetanus infection, , disability. Patient verbalizes understanding and continues to refuse vaccination. 1800 --Wound irrigated with 100mL NS and dressed with gel foam by nurse Galvez. Patient tolerated dressing well without complication. Plan of care discussed with patient, and strict instructions given regarding prescriptions, importance of follow up, and signs to return to Emergency Department, to include signs of wound infection, worsening pain, numbness, paresthesias, or any other new/worsening symptoms. Patient verbalizes understanding of discussion. Patient A&Ox3, ambulating with steady gait, stable for discharge home. Scribe Attestation: Documented by Vianney Hameed, acting as a scribe for Evi Mcguire PA-C. Provider Scribe Attestation: All medical record entries made by the Scribe were at my direction and personally dictated by me. I have reviewed the chart and agree that the record accurately reflects my personal performance of the history, physical exam, medical decision making, and the department course for this patient. I have also personally directed, reviewed, and agree with the discharge instructions and disposition. Disposition - Clinical Impression Clinical Impression: Avulsion of skin of finger Counseled Patient/Family Regarding: Diagnosis, Need For Followup, Rx Given - Disposition Referrals: Rafal Ramirez MD [Medical Doctor] - Disposition: Routine/Home Disposition Time: 17:35 Condition: IMPROVED Additional Instructions: Keep dressing on until tomorrow, then remove and clean gently with soap and water Keep wound clean, dry, and covered; apply neosporin Take antibiotic three times daily for 1 week Followup with hand doctor for persistent pain Followup with primary doctor within 2 days Return to ER for new/worsening symptoms Prescriptions: Cephalexin [Keflex] 500 mg PO TID 7 Days #21 capsule Instructions: Wound Care Forms: SwitchNote (Fijian), [facility] School/Work Excuse
[2018-06-10] MEDS ORDERED: Absorbable Gelatin Sponge Size 12-7 ONE (18:04)
[2018-06-10] MEDS ORDERED: Tdap Vaccine 0.5 ml Vial (10-64 yrs) IM ONE (18:19)
== END 2018-06-10 19:18 | disposition home or self-care (01) ==
LOC: H.ER 16:55
DX: S61.207A Unspecified open wound of left little finger without damage to nail, initial encounter (principal); W26.0XXA Contact with knife, initial encounter; Y92.000 Kitchen of unspecified non-institutional (private) residence as the place of occurrence of the external cause

== ENCOUNTER 2018-09-17 08:26 | Emergency (ER) | payer MEDICAID ==
[2018-09-17 08:36] VITALS: O2SAT 99; BMI 25.2
--- NOTE | 2018-09-17 09:20 | ED PDOC ---
HPI: Back Time Seen by Provider: 09/17/18 08:43 Chief Complaint (Nursing): Abdominal Pain Chief Complaint (Provider): Left lower back pain History Per: Patient Onset/Duration Of Symptoms: Hrs Current Symptoms Are (Timing): Better Quality Of Discomfort: Dull, "Pain" Associated Symptoms: None Additional Complaint(s): 33yo female with history of ovarian cysts, kidney stones, comes to ER reporting left lower back pain, worse this morning but now more of a dull pain. She did not take any medication for the pain. Patient denies any dysuria, hematuira, weakness, numbness, tingling, back injury or trauma. Patient was concerned about the pain due to her medical history. PMD: [facility] Past Medical History Reviewed: Historical Data, Nursing Documentation, Vital Signs Vital Signs: Last Vital Signs Temp 98 F 09/17/18 08:35 Pulse 80 09/17/18 08:35 Resp 16 09/17/18 08:35 BP 105/69 09/17/18 08:35 Pulse Ox 99 09/17/18 08:35 - Medical History PMH: Kidney Stones Denies: HIV, Chronic Kidney Disease - Surgical History Surgical History: No Surg Hx - Family History Family History: States: Unknown Family Hx - Immunization History Hx Influenza Vaccination: No - Home Medications Home Medications: Ambulatory Orders Medication Instructions Recorded Ciprofloxacin HCl [Cipro] 250 mg PO BID 10/08/17 Docusate Sodium [Colace] 100 mg PO BID #20 capsule 10/10/17 Famotidine [Pepcid] 20 mg PO BID #60 tab 10/10/17 Hydrocodone/Acetaminophen [Davilla 1 tab PO Q4 PRN #10 tab 10/10/17 325 mg-5 mg] Ketorolac Tromethamine [Toradol] 10 mg PO Q6 PRN #20 tab 10/10/17 Lactobacillus Acidophilus [Bacid 1 cap PO BID #30 cap 10/10/17 Acidophilus] Metoclopramide HCl [Reglan] 10 mg PO Q6 PRN #20 tablet 10/10/17 Ondansetron [Zofran Tab] 4 mg PO Q8H #20 tab 10/10/17 Tamsulosin [Flomax] 0.4 mg PO BID #14 cap 10/10/17 Cephalexin [Keflex] 500 mg PO TID 7 Days #21 capsule 06/10/18 Ibuprofen [Motrin] 600 mg PO Q6H PRN #20 tab 09/17/18 - Allergies Allergies/Adverse Reactions: Allergies Allergy/AdvReac Type Severity Reaction Status Date / Time No Known Allergies Allergy Verified 06/10/18 17:06 Review of Systems Gastrointestinal: Positive for: Abdominal Pain Genitourinary Female: Negative for: Dysuria, Frequency, Hematuria Musculoskeletal: Positive for: Back Pain Physical Exam - Physical Exam Appears: Positive for: Non-toxic, No Acute Distress Head Exam: Positive for: NORMAL INSPECTION Skin: Positive for: Normal Color Eye Exam: Positive for: Normal appearance Neck: Positive for: Supple Cardiovascular/Chest: Positive for: Regular Rate, Rhythm Respiratory: Positive for: Normal Breath Sounds Back: Positive for: Other (minimal left lower back pain). Negative for: L CVA Tenderness, R CVA Tenderness, Vertebral Tenderness Extremity: Positive for: Normal ROM Neurological/Psych: Positive for: Awake, Alert, Oriented (x 3) - ECG O2 Sat by Pulse Oximetry: 99 (RA) Pulse Ox Interpretation: Normal Medical Decision Making Medical Decision Makinyo female with lower back pain Plan: -- Udip -- Upreg -- US Pelvis -- Motrin 600mg PO 10:15 Declines pelvic ultrasound because she feels better after Motrin. Scribe Attestation: Documented by Lenora Woodard, acting as a scribe for Nan Robertson MD. Provider Scribe Attestation: All medical record entries made by the Scribe were at my direction and personally dictated by me. I have reviewed the chart and agree that the record accurately reflects my personal performance of the history, physical exam, medical decision making, and the department course for this patient. I have also personally directed, reviewed, and agree with the discharge instructions and di sposition. Disposition - Clinical Impression Clinical Impression: Low back pain - Disposition Referrals: [facility] [place] [Outside] Disposition: Routine/Home Disposition Time: 10:12 Prescriptions: Ibuprofen [Motrin] 600 mg PO Q6H PRN #20 tab PRN Reason: Pain, Moderate (4-7) Instructions: Low Back Pain in Adults Forms: [facility] (Guamanian)
[2018-09-17 10:24] VITALS: BP 116/68; PULSE 68; RESP 14; TEMP 98.5
== END 2018-09-17 10:16 | disposition home or self-care (01) ==
LOC: H.ER 08:26
DX: M54.5 Low back pain (principal); Z87.442 Personal history of urinary calculi

== ENCOUNTER 2018-09-18 06:57 | Emergency (ER) | payer MEDICAID ==
[2018-09-18 06:57] VITALS: BMI 25.2
[2018-09-18 07:08] VITALS: TEMP 97.5; O2SAT 98
--- NOTE | 2018-09-18 08:09 | ED PDOC ---
HPI: Abdomen Time Seen by Provider: 09/18/18 07:22 Chief Complaint (Nursing): Abdominal Pain Chief Complaint (Provider): Abdominal Pain History Per: Patient History/Exam Limitations: no limitations Onset/Duration Of Symptoms: Days Current Symptoms Are (Timing): Still Present Additional Complaint(s): 33 y/o female with a PMHx of Ovarian Cysts (in 2014) and a Kidney Stone (in 2018) presents to the ED for evaluation of intermittent pelvic pain, onset excelsior cutter yesterday. Patient reports this is her third visit for this pain over the past day. Patient notes pain begin in the left pelvic/LLQ area and radiates to the back. Patient states she was initially evaluated here, given a prescription for pain and discharged home. Patient states pain improved with medications but returned. Patient notes she was evaluated yesterday at [facility] where she had blood work, urine and a Renal and Transvaginal US done and was given Rocephin and Toradol for pain relief. While at [place], the renal US demonstrates multiple small renal cysts and the Transvaginal US demonstrated possible hydrosalpinx on the left side. Patient reports of having an DRILL [employer] consult while at [place] who disagreed with the radiologist's US reads and stated she did not have a cysts and that she was stable for discharge home. Patient reports upon returning home she felt fine. However, patient notes that symptoms returned and became associated with nausea and 4 episodes of vomiting. Denies having a CT for evaluation of this pain since onset. Patient notes pain is similar to that of a previous kidney stone because of the intermittent pain. Patient denies having any pain at present. PMD: [facility] Past Medical History Reviewed: Historical Data, Nursing Documentation, Vital Signs Vital Signs: Last Vital Signs Temp 97.5 F L 09/18/18 07:04 Pulse 78 09/18/18 07:04 Resp 16 09/18/18 07:04 BP 103/65 09/18/18 07:04 Pulse Ox 98 09/18/18 07:04 - Medical History PMH: Kidney Stones Denies: HIV, Chronic Kidney Disease Other PMH: ovarian cysts - Surgical History Other surgeries: Kidney Stone Surgery - Family History Family History: States: Unknown Family Hx - Immunization History Hx Influenza Vaccination: No - Home Medications Home Medications: Ambulatory Orders Medication Instructions Recorded Ciprofloxacin HCl [Cipro] 250 mg PO BID 10/08/17 Docusate Sodium [Colace] 100 mg PO BID #20 capsule 10/10/17 Famotidine [Pepcid] 20 mg PO BID #60 tab 10/10/17 Hydrocodone/Acetaminophen [Circle 1 tab PO Q4 PRN #10 tab 10/10/17 325 mg-5 mg] Ketorolac Tromethamine [Toradol] 10 mg PO Q6 PRN #20 tab 10/10/17 Lactobacillus Acidophilus [Bacid 1 cap PO BID #30 cap 10/10/17 Acidophilus] Metoclopramide HCl [Reglan] 10 mg PO Q6 PRN #20 tablet 10/10/17 Ondansetron [Zofran Tab] 4 mg PO Q8H #20 tab 10/10/17 Tamsulosin [Flomax] 0.4 mg PO BID #14 cap 10/10/17 Cephalexin [Keflex] 500 mg PO TID 7 Days #21 capsule 06/10/18 Ibuprofen [Motrin] 600 mg PO Q6H PRN #20 tab 09/17/18 Doxycycline Hyclate 100 mg PO BID #20 capsule 09/18/18 Ondansetron ODT [Zofran ODT] 4 mg PO Q8 PRN #12 odt 09/18/18 - Allergies Allergies/Adverse Reactions: Allergies Allergy/AdvReac Type Severity Reaction Status Date / Time No Known Allergies Allergy Verified 06/10/18 17:06 Review of Systems ROS Statement: Except As Marked, All Systems Reviewed And Found Negative Gastrointestinal: Positive for: Nausea, Vomiting, Abdominal Pain Genitourinary Female: Positive for: Pelvic Pain Musculoskeletal: Positive for: Back Pain Physical Exam - Reviewed Nursing Documentation Reviewed: Yes Vital Signs Reviewed: Yes - Physical Exam Appears: Positive for: No Acute Distress Head Exam: Positive for: ATRAUMATIC, NORMOCEPHALIC Skin: Positive for: Normal Color, Warm, Dry Eye Exam: Positive for: Normal appearance, EOMI, PERRL ENT: Positive for: Normal ENT Inspection Neck: Positive for: Normal, Painless ROM Cardiovascular/Chest: Positive for: Regular Rate, Rhythm. Negative for: Murmur Respiratory: Positive for: Normal Breath Sounds. Negative for: Respiratory Distress Gastrointestinal/Abdominal: Positive for: Tenderness (LLQ tenderness ) Back: Positive for: Normal Inspection. Negative for: L CVA Tenderness, R CVA Tenderness, Vertebral Tenderness Extremity: Positive for: Normal ROM. Negative for: Deformity Neurological/Psych: Positive for: Awake, Alert, Oriented (x3) - Laboratory Results Result Diagrams: 09/18/18 08:20 09/18/18 08:20 - ECG O2 Sat by Pulse Oximetry: 98 (RA) Pulse Ox Interpretation: Normal - Progress Re-evaluation Time: 11:47 Condition: Re-examined, Improved Medical Decision Making Medical Decision Making: Time: 0746 Impression: Pelvic Pain Differentials include but not limited to ovarian cysts, ovarian torsion, hydrosalpinx, kidney stones and diverticulutis Plan: -- CT Abd/Pelvis IV Contrast ONLY -- BMP -- ED Urine -- ED Urine Dipstick -- CBC with Differentials -- Urinalysis Time: 1005 CT ABD/PELVIS RESULTS FINDINGS: LOWER THORAX: Unremarkable. LIVER: Fatty liver no gross lesion or ductal dilatation. GALLBLADDER AND BILE DUCTS: Unremarkable. PANCREAS: Unremarkable. No gross lesion or ductal dilatation. SPLEEN: Unremarkable. ADRENALS: Stable 1.3 centimeter left adrenal adenoma. KIDNEYS AND URETERS: Right renal cysts measuring up to 13 millimeters. VASCULATURE: Unremarkable. No aortic aneurysm. No aortic atherosclerotic calcification or mural plaque present. BOWEL: Unremarkable. No obstruction. No gross mural thickening. APPENDIX: Normal appendix. PERITONEUM: Unremarkable. No free fluid. No free air. LYMPH NODES: Unremarkable. No enlarged lymph nodes. BLADDER: Unremarkable. REPRODUCTIVE: Question 4.1 centimeter bilobed left ovarian cysts/cystic lesion. BONES: No acute fracture. OTHER FINDINGS: None. IMPRESSION: Question 4.1 centimeter bilobed left ovarian cysts/cystic lesion. Time: 1022 Plan: -- on re-evaluation, patient reports of developing nausea. Zofran ordered -- Zofran Inj 4 mg IV Time: 1111 -- Given US findings, DRILL PRESS HAND Dr. Velazquez called for consultation. Time: 1116 -- Spoke to Dr. 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 Patient is stable for discharge home with a diagnosis of pelvic inflammatory disease and hydrosalpinx. Scribe Attestation: Documented by Saleem Waldron, acting as a scribe for Karina Jenkins MD. Provider Scribe Attestation: All medical record entries made by the Scribe were at my direction and personally dictated by me. I have reviewed the chart and agree that the record accurately reflects my personal performance of the history, physical exam, medical decision making, and the department course for this patient. I have also personally directed, reviewed, and agree with the discharge instructions and disposition. Disposition - Clinical Impression Clinical Impression: PID (acute pelvic inflammatory disease), Hydrosalpinx - Patient ED Disposition Is Patient to be Admitted: No Doctor Will See Patient In The: Office Counseled Patient/Family Regarding: Studies Performed, Diagnosis, Need For Followup - Disposition Referrals: [facility] [Outside] [facility] [Outside] Disposition: Routine/Home Disposition Time: 11:30 Condition: GOOD Additional Instructions: ELIESER MAHAJAN, thank you for letting us take care of you today. Your provider was Karina Jenkins MD and you were treated for VOMITING,NAUSEA. The emergency medical care you received today was directed at your acute symptoms. If you were prescribed any medication, please fill it and take as directed. It may take several days for your symptoms to resolve. Return to the Emergency Department if your symptoms worsen, do not improve, or if you have any other problems. Please contact your doctor or call one of the physicians/clinics you have been referred to that are listed on the Patient Visit Information form that is included in your discharge packet. Bring any paperwork you were given at discharge with you along with any medications you are taking to your follow up visit. Our treatment cannot replace ongoing medical care by a primary care provider outside of the emergency department. Thank you for allowing the [facility] team to be part of your care today. If you had an X-Ray or CT scan: A Radiologist will review the ED reading if any change in treatment is needed we will contact you. If you had a blood, urine, or wound culture: It will take several days for the results, if any change in treatment is needed we will contact you. If you had an STI test: It will take 48 hours for the results. Please call after 1 week if you have not heard back. Prescriptions: Doxycycline Hyclate 100 mg PO BID #20 capsule Ondansetron ODT [Zofran ODT] 4 mg PO Q8 PRN #12 odt PRN Reason: Nausea/Vomiting Instructions: Pelvic Inflammatory Disease Forms: [facility] (Khmer)
[2018-09-18 08:42] LABS: BASO # 0.1 K/uL (0.0-0.2); BASO % 0.6 % (0.0-2.0); EOS % 0.3 % (0.0-4.0); HEMOGLOBIN 13.8 g/dL (12.0-16.0); LYMPH # 1.3 K/uL (1.0-4.3); LYMPH % 10.4 % (20.0-40.0); MEAN CELL VOLUME 90.5 fl (81.0-99.0); MEAN CORPUSCULAR HGB CONC 33.2 g/dL (33.0-37.0); MONO # 0.9 K/uL (0.0-0.8); MONO % 7.4 % (0.0-10.0); NEUT # 10.1 K/uL (1.8-7.0); NEUT % 81.3 % (50.0-75.0); RBC 4.59 Mil/uL (3.80-5.20); RED CELL DISTRIBUTION WIDTH 12.6 % (11.5-14.5); WHITE BLOOD COUNT 12.5 K/uL (4.8-10.8)
[2018-09-18 08:55] LABS: SQUAMOUS EPITHIAL 3 /hpf (0-5); URINE BACTERIA RARE (<OCC); URINE BILIRUBIN NEGATIVE (NEGATIVE); URINE BLOOD NEGATIVE (NEGATIVE); URINE CLARITY SLIGHTY-CLOUDY (Clear); URINE COLOR YELLOW (YELLOW); URINE GLUCOSE (UA) NEG (NEGATIVE); URINE LEUKOCYTE ESTERASE NEG Leu/uL (Negative); URINE PROTEIN 100 mg/dL (NEGATIVE); URINE UROBILINOGEN 0.2-1.0 mg/dL (0.2-1.0)
[2018-09-18 08:59] LABS: BLOOD UREA NITROGEN 19 mg/dl (7-17); CALCIUM 9.5 mg/dL (8.4-10.2); GFR NON-AFRICAN AMERICAN > 60
[2018-09-18] MEDS ORDERED: Sodium Chloride 0.9% 50 ML IV ONE (09:44)
[2018-09-18] MEDS ORDERED: Iohexol 300 100 ML IJ ONE (09:44)
--- NOTE | 2018-09-18 10:08 | CT ---
Date of service: 09/18/2018 PROCEDURE: CT Abdomen and Pelvis with contrast HISTORY: LLQ left pelvic pain TVUS with hydrosalpinx COMPARISON: 10/06/2017 TECHNIQUE: Contrast dose: Radiation dose: Total exam DLP = 386.65 mGy-cm. This CT exam was performed using one or more of the following dose reduction techniques: Automated exposure control, adjustment of the mA and/or kV according to patient size, and/or use of iterative reconstruction technique. FINDINGS: LOWER THORAX: Unremarkable. LIVER: Fatty liver no gross lesion or ductal dilatation. GALLBLADDER AND BILE DUCTS: Unremarkable. PANCREAS: Unremarkable. No gross lesion or ductal dilatation. SPLEEN: Unremarkable. ADRENALS: Stable 1.3 centimeter left adrenal adenoma. KIDNEYS AND URETERS: Right renal cysts measuring up to 13 millimeters. VASCULATURE: Unremarkable. No aortic aneurysm. No aortic atherosclerotic calcification or mural plaque present. BOWEL: Unremarkable. No obstruction. No gross mural thickening. APPENDIX: Normal appendix. PERITONEUM: Unremarkable. No free fluid. No free air. LYMPH NODES: Unremarkable. No enlarged lymph nodes. BLADDER: Unremarkable. REPRODUCTIVE: Question 4.1 centimeter bilobed left ovarian cysts/cystic lesion. BONES: No acute fracture. OTHER FINDINGS: None. IMPRESSION: Question 4.1 centimeter bilobed left ovarian cysts/cystic lesion.
[2018-09-18 14:11] VITALS: BP 110/70; PULSE 74; RESP 18
== END 2018-09-18 12:03 | disposition home or self-care (01) ==
LOC: H.ER 06:57
DX: N73.9 Female pelvic inflammatory disease, unspecified (principal); N70.11 Chronic salpingitis; N83.202 Unspecified ovarian cyst, left side; N28.1 Cyst of kidney, acquired
CPT/HCPCS: 74177; 80048; 81003; 81025; 85025; 96374; 99283; J2405; Q9967